=== PATIENT | male | born 1985 | race Caucasian/White ===

== ENCOUNTER 2018-12-26 16:47 | Emergency (ER) | payer BC, MEDICAID ==
[2018-12-26] MEDS ORDERED: Alum Hydrox/Mag Hydrox/Simeth 30 ML, Lidocaine 2% 15 ML PO ONE ×2 (17:37)
[2018-12-26] MEDS ORDERED: Lactulose Soln 10 GM/15 ML 30 ML UD Cup PO ONE (17:38)
--- NOTE | 2018-12-26 18:29 | EDM.PDOC ---
ED HPI GENERAL MEDICAL PROBLEM - General Chief Complaint: Abdominal Pain Stated Complaint: ABDOMINAL PAIN Time Seen by Provider: 12/26/18 16:52 Source of Information: Reports: Patient History Limitations: Reports: No Limitations - History of Present Illness INITIAL COMMENTS - FREE TEXT/NARRATIVE: 33-year-old male presents to ER with 2 day history of epigastric pain. Patient reports that he's had a negative epigastric hernia in 2013 and the pain is similar to this. Patient also reports being constipated. He denies any nausea vomiting fever or back pain or chills. He does not have a PCP. He is accompanied by his . Onset Date: 12/25/18 Duration: Getting Worse, Intermittent Location: Reports: Abdomen Quality: Reports: Ache Severity: Mild Improves with: Reports: None Worsens with: Reports: Eating Associated Symptoms: Denies: Chest Pain, Cough, Fever/Chills, Nausea/Vomiting, Shortness of Breath Upper Abdomen Pain Score (Numeric/FACES): 5 - Related Data Allergies Allergy/AdvReac Type Severity Reaction Status Date / Time No Known Allergies Allergy Verified 12/26/18 16:55 Home Meds: Home Meds Omeprazole Magnesium [Prilosec Otc] 20 mg PO DAILY 15 Days #15 tablet. [Rx] Past Medical History - Past Health History Medical/Surgical History: Denies Medical/Surgical History Gastrointestinal History: Reports: Other (See Below) Other Gastrointestinal History: epigastric hernia surgery Other Musculoskeletal History: arthritis to knee - Past Surgical History GI Surgical History: Reports: Colonoscopy, Other (See Below) Other GI Surgeries/Procedures: hemmoroids removed Social & Family History - Family History Family Medical History: Noncontributory - Tobacco Use Smoking Status *Q: Never Smoker - Caffeine Use Caffeine Use: Reports: Energy Drinks, Tea - Recreational Drug Use Recreational Drug Use: No ED ROS GENERAL - Review of Systems Review Of Systems: See Below Constitutional: Denies: Fever, Chills HEENT: Reports: No Symptoms Respiratory: Denies: Shortness of Breath Cardiovascular: Denies: Chest Pain Endocrine: Reports: No Symptoms GI/Abdominal: Reports: Constipation. Denies: Abdominal Pain, Diarrhea, Nausea, Vomiting : Reports: No Symptoms Musculoskeletal: Reports: No Symptoms Skin: Reports: No Symptoms Neurological: Reports: No Symptoms Psychiatric: Reports: No Symptoms Hematologic/Lymphatic: Reports: No Symptoms ED EXAM, GI/ABD - Physical Exam Exam: See Below Exam Limited By: No Limitations General Appearance: Alert, WD/WN, No Apparent Distress Throat/Mouth: Normal Inspection, Normal Lips, Normal Teeth, Normal Gums, Normal Oropharynx, Normal Voice, No Airway Compromise Neck: Normal Inspection, Supple, Non-Tender, Full Range of Motion Respiratory/Chest: No Respiratory Distress, Lungs Clear, Normal Breath Sounds, No Accessory Muscle Use, Chest Non-Tender Cardiovascular: Normal Peripheral Pulses, Regular Rate, Rhythm, No Edema, No Gallop, No JVD, No Murmur, No Rub GI/Abdominal Exam: Normal Bowel Sounds, Soft, No Organomegaly, No Distention, No Abnormal Bruit, No Mass, Pelvis Stable, Tender, Other (Epigastric). No: Rigid, Rebound Back Exam: Normal Inspection, Full Range of Motion Extremities: Normal Inspection, Normal Range of Motion, Non-Tender, No Pedal Edema, Normal Capillary Refill Neurological: Alert, Oriented, CN II-XII Intact, Normal Cognition Psychiatric: Normal Affect, Normal Mood Skin Exam: Warm, Dry, Intact, Normal Color, No Rash Lymphatic: No Adenopathy Course - Vital Signs Last Recorded V/S: Last Vital Signs Temp 97.6 F 12/26/18 16:52 Pulse 65 12/26/18 16:52 Resp 18 12/26/18 16:52 BP 141/67 H 12/26/18 16:52 Pulse Ox 100 12/26/18 16:52 - Orders/Labs/Meds Orders: Active Orders 24 hr Category Date Time Status KUB [Abdomen 1V Flat] [CR] Stat Exams 12/26/18 17:38 Taken Labs: Laboratory Tests 12/26/18 12/26/18 Range/Units 18:05 18:05 WBC 9.00 (4.23-9.07) K/mm3 RBC 5.21 (4.63-6.08) M/mm3 Hgb 14.7 (13.7-17.5) gm/L Hct 44.5 (40.1-51.0) % MCV 85.4 (79.0-92.2) fl MCH 28.2 (25.7-32.2) pg MCHC 33.0 (32.2-35.5) g/dl RDW Std Deviation 40.2 (35.1-43.9) fL Plt Count 344 H (163-337) K/mm3 MPV 9.4 (9.4-12.3) fl Neut % (Auto) 57.8 (34.0-67.9) % Lymph % (Auto) 28.8 (21.8-53.1) % [place] % (Auto) 8.8 (5.3-12.2) % Eos % (Auto) 4.0 (0.8-7.0) Baso % (Auto) 0.3 (0.1-1.2) % Neut # (Auto) 5.20 (1.78-5.38) K/mm3 Lymph # (Auto) 2.59 (1.32-3.57) K/mm3 [place] # (Auto) 0.79 (0.30-0.82) K/mm3 Eos # (Auto) 0.36 (0.04-0.54) K/mm3 Baso # (Auto) 0.03 (0.01-0.08) K/mm3 Sodium 139 (136-145) mEq/L Potassium 3.7 (3.5-5.1) mEq/L Chloride 103 (98-107) mEq/L Carbon Dioxide 28 (21-32) mEq/L Anion Gap 11.7 (5-15) BUN 15 (7-18) mg/dL Creatinine 1.0 (0.7-1.3) mg/dL Est Cr Clr Drug Dosing 113.17 mL/min Estimated GFR (MDRD) > 60 (>60) mL/min BUN/Creatinine Ratio 15.0 (14-18) Glucose 90 (74-106) mg/dL Calcium 9.2 (8.5-10.1) mg/dL Total Bilirubin 0.2 (0.2-1.0) mg/dL AST 23 (15-37) U/L ALT 46 (16-63) U/L Alkaline Phosphatase 87 (46-116) U/L Total Protein 7.2 (6.4-8.2) g/dl Albumin 3.8 (3.4-5.0) g/dl Globulin 3.4 gm/dL Albumin/Globulin Ratio 1.1 (1-2) Lipase 94 (73-393) U/L Meds: Medications Discontinued Medications Generic Name Dose Route Start Last Admin Trade Name Freq PRN Reason Stop Dose Admin Al Hydroxide/Mg Hydroxide 30 0 ml 12/26/18 17:37 12/26/18 17:42 ml/ Lidocaine HCl 15 ml PO 12/26/18 17:38 45 ml ONETIME ONE Administration Lactulose 20 gm 12/26/18 17:38 12/26/18 18:09 Cephulac PO 12/26/18 17:39 20 gm ONETIME ONE Administration - Re-Assessments/Exams Free Text/Narrative Re-Assessment/Exam: 12/26/18 18:54 WBC 9.0 RBC 5.21 H&H 14.2 and 44.5 sodium 139 potassium 3.9 chloride 103 CO2 28 on 15 creatinine 1.0. AST 23 ALT 46 alkaline phosphatase 87 lipase 94. KUB does not reveal had a hernia there is some moderate stool in the colon. He received GI cocktail and his condition improved. I will discharge home with Prilosec. Instructed patient to increase fiber and fluid intake for his constipation. Instructed patient to follow up with his PCP. Instructed patient to return for any new or acutely worsening symptoms. Patient verbalizes understanding and is, plan for discharge. Departure - Departure Time of Disposition: 18:55 Disposition: Home, Self-Care 01 Condition: Good Clinical Impression: Gastroenteritis, GERD with esophagitis, Constipation - Discharge Information Prescriptions: Omeprazole Magnesium [Prilosec Otc] 20 mg PO DAILY 15 Days #15 tablet. Instructions: Indigestion, [id number], Food Choices for Gastroesophageal Reflux Disease, Adult, Constipation, Adult Referrals: PCP,None [Primary Care Provider] - Forms: ED Department Discharge Additional Instructions: He had been diagnosed with GERD or acid reflux. She should follow a low-fat little spicy diet. Follow-up with your PCP. You should increase your fiber and fluid intake for your constipation. For occasional constipation may want to take magnesium psych trait which is [id number]. Return to the emergency room for any new or acutely worsening symptoms. He had been given Prilosec for your GERD - My Orders Last 24 Hours: My Active Orders 12/26/18 17:38 KUB [Abdomen 1V Flat] [CR] Stat - Assessment/Plan Last 24 Hours: My Active Orders 12/26/18 17:38 KUB [Abdomen 1V Flat] [CR] Stat
--- NOTE | 2018-12-28 09:39 | CR ---
Abdomen: Supine view of the abdomen was obtained. Comparison: Prior abdominal x-ray of 11/22/13. No soft tissue abnormality is appreciated. Bowel gas pattern is normal. Bony structures appear within normal limits for the patient's age. No abnormal calcifications are seen. Pressure: 1. Nothing acute is appreciated on supine abdominal x-ray. Diagnostic code #1
== END 2018-12-26 19:07 | disposition home or self-care (01) ==
LOC: JD.ED 16:47
DX: K52.9 Noninfective gastroenteritis and colitis, unspecified (principal); K21.0 Gastro-esophageal reflux disease with esophagitis; K59.00 Constipation, unspecified; Z79.899 Other long term (current) drug therapy
CPT/HCPCS: 36415; 74018; 80053; 83690; 85025; 99283; A9270

== ENCOUNTER 2019-01-26 21:25 | Emergency (ER) | payer BC, MEDICAID ==
--- NOTE | 2019-01-26 22:01 | EDM.PDOC ---
ED HPI GENERAL MEDICAL PROBLEM - General Chief Complaint: Chest Pain Stated Complaint: CHEST PAIN DIZZY Time Seen by Provider: 01/26/19 22:08 Source of Information: Reports: Patient History Limitations: Reports: No Limitations - History of Present Illness INITIAL COMMENTS - FREE TEXT/NARRATIVE: 33-year-old male presents for evaluation and treatment of chest pain. Patient reports he's been experiencing chest pain for the last 6 days. Gradual onset. Located in the center of his chest. States it's been constant for the last 6 days, however, when he is distracted like while at work is not notices much. Currently reports pain as a 4 out of 10. He describes the pain like someone stepping on his chest. He reports associated symptoms of dizziness, lightheadedness, weakness and nausea. He appreciates that the dizziness is worse when he wakes up. He denies any fevers, cough, vomiting, syncope or any swelling or pain in his legs. He is not taking any [id number] antacids, Tylenol or Motrin for the pain. He is currently on Prilosec daily. Has a history of stomach problems. States on Thursday, prior to the chest pain, he felt as if he had trouble swallowing. Patient reports family history significant MIs at a young age including grandmother and uncle. He did himself does not have any cardiac history. Denies any history of hypertension or hypercholesterolemia. He is not a smoker. He is not diabetic. Patient does not have a primary care provider. Mid-Sternal Chest Pain Score (Numeric/FACES): 4 - Related Data Allergies Allergy/AdvReac Type Severity Reaction Status Date / Time No Known Allergies Allergy Verified 01/26/19 21:34 Home Meds: Home Meds Omeprazole Magnesium [Prilosec Otc] 20 mg PO DAILY 15 Days #15 tablet. [Rx] Levothyroxine 25 mcg PO ACBREAKFAST #30 tab 01/26/19 [Rx] Meclizine [Antivert] 25 mg PO TID PRN #20 tab 01/26/19 [Rx] Past Medical History - Past Health History Medical/Surgical History: Denies Medical/Surgical History Gastrointestinal History: Reports: GERD Other Gastrointestinal History: epigastric hernia surgery Other Musculoskeletal History: arthritis to knee - Past Surgical History GI Surgical History: Reports: Colonoscopy, Hernia Repair/Other, Other (See Below ) Other GI Surgeries/Procedures: hemmoroids removed Social & Family History - Family History Family Medical History: Noncontributory - Tobacco Use Smoking Status *Q: Never Smoker - Caffeine Use Caffeine Use: Reports: Energy Drinks - Recreational Drug Use Recreational Drug Use: No ED ROS GENERAL - Review of Systems Review Of Systems: See Below Constitutional: Reports: Malaise, Diaphoresis Respiratory: Reports: Shortness of Breath Cardiovascular: Reports: Chest Pain, Lightheadedness. Denies: Syncope GI/Abdominal: Reports: Constipation, Nausea. Denies: Abdominal Pain, Vomiting Neurological: Reports: Dizziness. Denies: Syncope ED EXAM, GENERAL - Physical Exam Exam: See Below Exam Limited By: No Limitations General Appearance: Alert, WD/WN, No Apparent Distress Eye Exam: Bilateral Eye: Normal Inspection Throat/Mouth: Normal Inspection, Normal Lips, Normal Voice, No Airway Compromise Respiratory/Chest: No Respiratory Distress, Lungs Clear, Normal Breath Sounds Cardiovascular: Normal Peripheral Pulses, Regular Rate, Rhythm, No Murmur GI/Abdominal: Normal Bowel Sounds, Soft, Non-Tender Neurological: Alert, Oriented, Normal Cognition Psychiatric: Normal Affect, Normal Mood Skin Exam: Warm, Dry, Normal Color EKG INTERPRETATION EKG Date: 01/26/19 Time: 10:11 Rhythm: NSR Rate (Beats/Min): 56 [place]: Normal P-Wave: Present QRS: Normal ST-T: Normal QT: Normal EKG Interpretation Comments: Sinus bradycardia at 56 bpm. Non specific intraventricular conduction delay. Other blanco normal EKG. Reviewed by myself and Dr. Hendrix. Course - Vital Signs Last Recorded V/S: Last Vital Signs Temp 97.8 F 01/26/19 21:31 Pulse 60 01/26/19 21:31 Resp 17 01/26/19 21:31 BP 137/84 01/26/19 21:31 Pulse Ox 100 01/26/19 21:31 - Orders/Labs/Meds Orders: Active Orders 24 hr Category Date Time Status Cardiac Monitoring [RC] . DIRECTED Care 01/26/19 22:02 Active EKG Documentation Completion [RC] ASDIRECTED Care 01/26/19 22:02 Active EKG 12 Lead [EK] Stat Ther 01/26/19 22:02 Ordered Labs: Laboratory Tests 01/26/19 01/26/19 01/26/19 Range/Units 22:20 22:20 22:20 WBC 8.58 (4.23-9.07) K/mm3 RBC 4.93 (4.63-6.08) M/mm3 Hgb 14.0 (13.7-17.5) gm/L Hct 41.2 (40.1-51.0) % MCV 83.6 (79.0-92.2) fl MCH 28.4 (25.7-32.2) pg MCHC 34.0 (32.2-35.5) g/dl RDW Std Deviation 37.7 (35.1-43.9) fL Plt Count 332 (163-337) K/mm3 MPV 9.3 L (9.4-12.3) fl Neut % (Auto) 56.0 (34.0-67.9) % Lymph % (Auto) 29.4 (21.8-53.1) % [place] % (Auto) 9.7 (5.3-12.2) % Eos % (Auto) 4.2 (0.8-7.0) Baso % (Auto) 0.5 (0.1-1.2) % Neut # (Auto) 4.81 (1.78-5.38) K/mm3 Lymph # (Auto) 2.52 (1.32-3.57) K/mm3 [place] # (Auto) 0.83 H (0.30-0.82) K/mm3 Eos # (Auto) 0.36 (0.04-0.54) K/mm3 Baso # (Auto) 0.04 (0.01-0.08) K/mm3 Sodium 139 (136-145) mEq/L Potassium 3.4 L (3.5-5.1) mEq/L Chloride 105 (98-107) mEq/L Carbon Dioxide 25 (21-32) mEq/L Anion Gap 12.4 (5-15) BUN 20 H (7-18) mg/dL Creatinine 1.0 (0.7-1.3) mg/dL Est Cr Clr Drug Dosing 113.17 mL/min Estimated GFR (MDRD) > 60 (>60) mL/min BUN/Creatinine Ratio 20.0 H (14-18) Glucose 97 (74-106) mg/dL Calcium 9.3 (8.5-10.1) mg/dL Total Bilirubin 0.3 (0.2-1.0) mg/dL AST 22 (15-37) U/L ALT 29 (16-63) U/L Alkaline Phosphatase 82 (46-116) U/L Troponin I < 0.017 (0.00-0.056) ng/mL Total Protein 6.9 (6.4-8.2) g/dl Albumin 3.9 (3.4-5.0) g/dl Globulin 3.0 gm/dL Albumin/Globulin Ratio 1.3 (1-2) Free T4 0.97 (0.76-1.46) ng/dL TSH 3rd Generation 8.237 H (0.358-3.74) uIU/mL Meds: Medications Discontinued Medications Generic Name Dose Route Start Last Admin Trade Name Freq PRN Reason Stop Dose Admin Al Hydroxide/Mg Hydroxide 30 0 ml 01/26/19 22:02 01/26/19 22:07 ml/ Lidocaine HCl 15 ml PO 01/26/19 22:03 45 ml ONETIME ONE Administration Ketorolac Tromethamine 30 mg 01/26/19 23:33 01/26/19 23:46 Toradol IVPUSH 01/26/19 23:34 30 mg ONETIME ONE Administration Meclizine HCl 25 mg 01/26/19 23:33 01/26/19 23:46 Antivert PO 01/26/19 23:34 25 mg NOW STA Administration - Radiology Interpretation Free Text/Narrative:: Chest x-ray shows no acute intrathoracic process. Formal radiology read is pending. - Re-Assessments/Exams Free Text/Narrative Re-Assessment/Exam: 01/26/19 23:32 I reviewed the labs, EKG and imaging with the patient. We will place him on a very low dose of thyroid as his TSH is quite high. Free T4 is still actually within normal limits, On the low side of normal. I encouraged him follow-up with family practice he may need additional testing. it is rather odd as he is a male and young to have hypothyroidism. will discharge home tonight. Discharge instructions as documented. Departure - Departure Time of Disposition: 23:32 Disposition: Home, Self-Care 01 Reason for Transfer *Q: Other Condition: Fair Clinical Impression: Hypothyroidism Prescriptions: Levothyroxine 25 mcg PO ACBREAKFAST #30 tab Meclizine [Antivert] 25 mg PO TID PRN #20 tab PRN Reason: Dizziness Instructions: Hypothyroidism Referrals: PCP,None [Primary Care Provider] - Swati Perez MD [Ordering Only Provider] - Forms: ED Department Discharge Additional Instructions: Take the levothyroxine as prescribed. 1 tab daily. Take this medication in the morning. May take the meclizine 1 tablet 3 times a day as needed for dizziness. take this while your thyroid medication is being adjusted to be optimized for you. make sure you are drinking plenty of fluids. Follow-up in the clinic. You may need further studies of your thyroid to identify the exact cause of your hypothyroidism. You will likely need your thyroid medication adjusted over time. Please return to the ER if your symptoms change or worsen. - My Orders Last 24 Hours: My Active Orders 01/26/19 22:02 Cardiac Monitoring [RC] . DIRECTED EKG Documentation Completion [RC] ASDIRECTED EKG 12 Lead [EK] Stat - Assessment/Plan Last 24 Hours: My Active Orders 01/26/19 22:02 Cardiac Monitoring [RC] . DIRECTED EKG Documentation Completion [RC] ASDIRECTED EKG 12 Lead [EK] Stat
[2019-01-26] MEDS ORDERED: Alum Hydrox/Mag Hydrox/Simeth 30 ML, Lidocaine 2% 15 ML PO ONE ×2 (22:02)
[2019-01-26] MEDS ORDERED: Ketorolac 30 MG/ML SDV IVPUSH ONE (23:33)
--- NOTE | 2019-01-27 07:59 | CR ---
Chest: Two views of the chest were obtained. Comparison: No prior chest imaging. Heart size and mediastinum are normal. Lungs are clear. Bony structures are unremarkable. Impression: 1. Nothing acute is appreciated on two-view chest x-ray. Diagnostic code #1
== END 2019-01-26 23:51 | disposition home or self-care (01) ==
LOC: JD.ED 21:25
DX: E03.9 Hypothyroidism, unspecified (principal); K21.9 Gastro-esophageal reflux disease without esophagitis; Z79.899 Other long term (current) drug therapy
CPT/HCPCS: 36415; 71046; 80053; 84439; 84443; 84484; 85025; 93005; 96372; 99285; A9270; J1885; 93010; 99284

== ENCOUNTER 2019-12-25 00:37 | Emergency (ER) | payer OTHER, BC ==
--- NOTE | 2019-12-25 01:27 | EDM.PDOC ---
ED HPI GENERAL MEDICAL PROBLEM - General Chief Complaint: Chest Pain Stated Complaint: BROKEN RIBS/SOB/RIB PAIN Time Seen by Provider: 12/25/19 00:49 Source of Information: Reports: Patient, Old Records ([facility] 12/21/2019) History Limitations: Reports: No Limitations - History of Present Illness INITIAL COMMENTS - FREE TEXT/NARRATIVE: Mr. Griffith is a very pleasant 34-year-old man with no significant chronic medical problems, who, medical records indicate, was seen at the [facility] on 12/21/2019, after he fell about 6 to 7 feet off of a ladder at work , onto his right side. He did not hit his head, and there was no loss of consciousness. A CT of the chest found 5 right rib fractures, numbers 8 through 12, with no hemothorax or pneumothorax. No abdominal injury was found, and a CT scan of his head was negative. He was admitted to the Trauma Surgeon overnight, and discharged home the following day, 12/22/2019. The patient has since followed up with Occupational Health, this past Thursday, , and he has an appointment to follow-up again this coming Thursday, 2019. His pain is being treated with ibuprofen 800 mg every 6 hours, Dilaudid 2 mg every 4 hours, and Flexeril 3 times a day. He states that he has been using an incentive spirometer. He now presents stating that he started having trouble breathing around 23:30, despite his pain medications. He is not sure if his difficulty breathing is due to pain, or some other problem. Here in the ED, the patient's initial BP is found to be modestly elevated at 141 /84, otherwise, he is hemodynamically stable, afebrile, saturating 92% on room air. Other than the right rib pain, the patient denies recent fever, chills, sore throat, ear pain, nasal or sinus congestion, cough, dyspnea, palpitations, nausea, vomiting, constipation, diarrhea, abdominal pain, urinary symptoms, recent weight gain or weight loss, recent bloody bowel movements or black bowel movements, recent joint aches, headaches, or rashes. The patient's PCP is Swati Perez NP. His Occupational Health physician is Dr. Wally Márquez. 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: Reports: Cold Therapy, Other (see below) Other 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: prescribed flexiril, dilaudid, motrin Right Posterior Back Pain Score (Numeric/FACES): 8 - Related Data Allergies Allergy/AdvReac Type Severity Reaction Status Date / Time No Known Allergies Allergy Verified 12/25/19 00:59 Home Meds: Home Meds Amoxicillin 2 tab PO Q8H #42 tablet 12/25/19 [Rx] Azithromycin 1 tab PO QAM #4 tablet 12/25/19 [Rx] Past Medical History Gastrointestinal History: Reports: GERD Musculoskeletal History: Reports: Fracture (right ribs 8 to 12, 12/21/2019), Osteoarthritis (both knees) - Past Surgical History GI Surgical History: Reports: Colonoscopy (x 1), EGD (x 1), Hernia, Abdominal ( epigastrium), Other (See Below) (Hemorrhoidectomy) Social & Family History - Family History Family Medical History: Noncontributory - Tobacco Use Smoking Status *Q: Never Smoker Tobacco Use Within Last Twelve Months: Smokeless Tobacco (Chews 1/2 can per day) - Caffeine Use Caffeine Use: Reports: Soda - Alcohol Use Alcohol Use History: No - Recreational Drug Use Recreational Drug Use: No - Living Situation & Occupation Living situation: Reports: , with Spouse, with Family (6 kids) 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 ED EXAM, GENERAL - Physical Exam Exam: See Below Exam Limited By: No Limitations General Appearance: Alert, WD/WN, Mild Distress (appears uncomfortable) Eye Exam: Bilateral Eye: EOMI, Normal Inspection Ears: Normal External Exam, Hearing Grossly Normal Nose: Normal Inspection Throat/Mouth: Normal Inspection, Normal Lips, Normal Voice, No Airway Compromise Head: Atraumatic, Normocephalic Neck: Normal Inspection, Full Range of Motion Respiratory/Chest: No Respiratory Distress, Lungs Clear, Normal Breath Sounds ( Poor inspiratory effort, therefore diminished breath sounds), No Accessory Muscle Use, Other (No flail chest). No: Crackles, Rhonchi, Wheezing, Stridor, Pleural Rub, Prolonged Expiration Cardiovascular: Normal Peripheral Pulses, Regular Rate, Rhythm, No Edema, No Gallop, No JVD, No Murmur, No Rub Peripheral Pulses: 4+: Radial (L), Radial (R) GI/Abdominal: Normal Bowel Sounds, Soft, Non-Tender, No Organomegaly, No Distention, No Abnormal Bruit, No Mass (Male) Exam: Deferred Rectal (Males) Exam: Deferred Back Exam: Normal Inspection, Full Range of Motion, NT Extremities: Normal Inspection, Normal Range of Motion, No Pedal Edema, Normal Capillary Refill Neurological: Alert, Oriented, Normal Cognition, No Motor/Sensory Deficits Psychiatric: Normal Affect Skin Exam: Warm, Dry, Intact, Normal Color, No Rash Course - Vital Signs Last Recorded V/S: Last Vital Signs Temp 36.2 C 12/25/19 02:21 Pulse 68 12/25/19 02:21 Resp 18 12/25/19 02:21 BP 131/83 12/25/19 02:21 Pulse Ox 90 L 12/25/19 02:21 - Orders/Labs/Meds Orders: Active Orders 24 hr Category Date Time Status Chest 2V [CR] Stat Exams 12/25/19 01:19 Taken Chest wo Cont [CT] Stat Exams 12/25/19 02:51 Taken Labs: Laboratory Tests 12/25/19 12/25/19 12/25/19 Range/Units 03:20 03:20 03:20 WBC 17.36 H (4.23-9.07) K/mm3 RBC 5.09 (4.63-6.08) M/mm3 Hgb 14.6 (13.7-17.5) gm/dl Hct 44.2 (40.1-51.0) % MCV 86.8 D (79.0-92.2) fl MCH 28.7 (25.7-32.2) pg MCHC 33.0 (32.2-35.5) g/dl RDW Std Deviation 40.9 (35.1-43.9) fL Plt Count 388 H (163-337) K/mm3 MPV 9.2 L (9.4-12.3) fl Neutrophils % (Manual) 72 H (40-60) % Band Neutrophils % 8 (0-10) % Lymphocytes % (Manual) 9 L (20-40) % Atypical Lymphs % 0 % Monocytes % (Manual) 8 (2-10) % Eosinophils % (Manual) 3 (0.8-7.0) % Basophils % (Manual) 0 L (0.2-1.2) Platelet Estimate Adequate Plt Morphology Comment Normal RBC Morph Comment Normal PT 10.1 (9.7-12.0) SECONDS INR 0.93 APTT 29 (22-31) SECONDS Sodium 138 (136-145) mEq/L Potassium 4.3 (3.5-5.1) mEq/L Chloride 103 (98-107) mEq/L Carbon Dioxide 27 (21-32) mEq/L Anion Gap 12.3 (5-15) BUN 14 (7-18) mg/dL Creatinine 1.0 (0.7-1.3) mg/dL Est Cr Clr Drug Dosing 112.09 mL/min Estimated GFR (MDRD) > 60 (>60) mL/min BUN/Creatinine Ratio 14.0 (14-18) Glucose 112 H (74-106) mg/dL Calcium 9.1 (8.5-10.1) mg/dL Total Bilirubin 0.4 (0.2-1.0) mg/dL AST 19 (15-37) U/L ALT 51 (16-63) U/L Alkaline Phosphatase 84 (46-116) U/L Total Protein 7.5 (6.4-8.2) g/dl Albumin 3.7 (3.4-5.0) g/dl Globulin 3.8 gm/dL Albumin/Globulin Ratio 1.0 (1-2) Meds: Medications Discontinued Medications Generic Name Dose Route Start Last Admin Trade Name Freq PRN Reason Stop Dose Admin Amoxicillin 1,000 mg 12/25/19 04:12 12/25/19 04:22 Amoxil PO 12/25/19 04:13 1,000 mg ONETIME STA Administration Azithromycin 500 mg 12/25/19 04:12 12/25/19 04:22 Zithromax PO 12/25/19 04:13 500 mg ONETIME STA Administration - Re-Assessments/Exams Free Text/Narrative Re-Assessment/Exam: 12/25/19 01:21 As above, the patient fractured 5 right ribs when he fell from a ladder on 2019. He now presents with increased pain and dyspnea since 23:30 tonight, despite pain medication. I have ordered a 2 view chest x-ray to evaluate for a pneumothorax, hemothorax, or pulmonary contusion. 12/25/19 02:52 Two-view chest radiograph reviewed. The cardiac silhouette is within normal limits. No pulmonary vascular congestion. There appears to be a right-sided pleural effusion/hemothorax, with atelectasis at the interface. A right lower lobe infiltrate cannot be excluded. No pneumothorax. Formal read per the Radiologist pending. Based on the above, I have ordered a CT of the chest without contrast to evaluate further. 12/25/19 03:59 CT of the chest without contrast as read by [facility] as: 1. Bilateral lower lobe consolidations right greater than left, either pneumonia or atelectases. 2. Small right pleural effusion/hemothorax. 3. Right 7th through 12th rib fractures. The right lateral 9 and right posterior 11th rib fractures are complex with displacement. 4. There is edema and thickening of the right lateral chest wall soft tissues partially included on this study. 12/25/19 04:06 The patient's CBC is remarkable for a WBC count elevated at 17.39, with 8% bandemia. His platelets are slightly elevated at 388,000, with the remainder of his CBC being unremarkable. His CMP is remarkable for a blood glucose is slightly elevated at 112, with the remainder of his CMP being unremarkable. His coags are within normal limits. Based on the above CT findings and elevated WBC count with left shift, the patient appears to have pneumonia. Because he is not hypoxemic, I do not see an indication for admission to the hospital. I will therefore start him on amoxicillin 1 g Q 8 hrs and a Z-Ino. 12/25/19 04:18 Test results and my plan of treatment discussed with the patient. He is agreeable. I emphasized that it is important that he follow-up with Dr. Márquez this coming Thursday, as scheduled. Departure - Departure Time of Disposition: 04:19 Disposition: Home, Self-Care 01 Condition: Good Clinical Impression: Right lower lobe pneumonia, Multiple rib fractures involving four or more ribs - Discharge Information *PRESCRIPTION DRUG MONITORING PROGRAM REVIEWED*: Not Applicable *COPY OF PRESCRIPTION DRUG MONITORING REPORT IN PATIENT VONDA: Not Applicable Prescriptions: Amoxicillin 2 tab PO Q8H #42 tablet Azithromycin 1 tab PO QAM #4 tablet Referrals: Swati Perez MD [Primary Care Provider] - Wally Márquez MD [Physician] - Forms: ED Department Discharge Additional Instructions: You were seen in the emergency room for trouble breathing following multiple rib fractures on 12/21/2019. Work-up in the ER included a chest x-ray, followed by a CT scan of your chest without contrast, along with blood work. The CT scan of your chest found a consolidation of the of your right lung, and your WBC count was found to be elevated at 17.39 with a percent bandemia, consistent with a bacterial infection. The CT scan also found that you have 6 broken ribs (ribs #7 through 12), not 5. Based on your CT and lab findings, you have been diagnosed with right lower lobe pneumonia. You have been started on the antibiotics amoxicillin and azithromycin. Prescriptions for amoxicillin and azithromycin have been sent to the [facility], located just south and across the [address] from [facility]. The pharmacy will be open between noon and 4:00 today. Take 2 tablets of amoxicillin every 8 hours, starting around noon today, as prescribed. Finish the entire 7-day prescription unless told otherwise by Dr. Márquez. Take 1 tablet of azithromycin every morning, starting tomorrow morning, 12/26/2019, as prescribed. Finish the entire 4-day prescription unless told otherwise by Dr. Márquez. Continue to take the ibuprofen, Dilaudid, and Flexeril as directed by Dr. Márquez. Follow-up with Dr. Márquez at your previously scheduled appointment this coming 12/27/2019. If any other problems, please do not hesitate to return to the ER. Sepsis Event Note - Evaluation Sepsis Screening Result: No Definite Risk - Focused Exam Vital Signs: Vital Signs Temp Pulse Resp BP Pulse Ox 12/25/19 02:21 36.2 C 68 18 131/83 90 L 12/25/19 00:50 36.3 C 88 20 141/84 H 92 L Date Exam was Performed: 12/25/19 Time Exam was Performed: 04:28 - My Orders Last 24 Hours: My Active Orders 12/25/19 01:19 Chest 2V [CR] Stat 12/25/19 02:51 Chest wo Cont [CT] Stat - Assessment/Plan Last 24 Hours: My Active Orders 12/25/19 01:19 Chest 2V [CR] Stat 12/25/19 02:51 Chest wo Cont [CT] Stat
[2019-12-25] MEDS ORDERED: Amoxicillin 500 MG Cap PO STA (04:12)
[2019-12-25] MEDS ORDERED: Azithromycin 250 MG Tab PO STA (04:12)
--- NOTE | 2019-12-25 10:27 | CT ---
CT chest Technique: Multiple axial sections were obtained from above the dome of the diaphragm inferiorly through the pubic symphysis. Intravenous contrast not utilized. Findings: Small right-sided pleural effusion is seen. Areas of atelectasis noted within both lung bases. Atelectasis is worse on the right side. Mediastinum and hilar regions are unremarkable. Visualized upper abdominal structures shows nothing acute. Fractures are noted within the posterior right 12th rib near the costovertebral junction, 11th rib fracture which is mildly comminuted and is mildly displaced, nondisplaced rib fracture noted within the posterior lateral 10th rib, displaced rib fracture noted within the posterolateral 9th rib, nondisplaced fracture within the lateral 8th rib and nondisplaced fracture within the lateral 7th rib. No left-sided rib fractures are noted. Impression: 1. Bibasilar atelectasis and small right-sided pleural effusion. Atelectasis more prominent on the right side. 2. Multiple right-sided rib fractures involving the 7th through 12th ribs. Several other rib fractures show displacement. 3. No evidence of pneumothorax. Diagnostic code #3 This report was dictated in MDT I agree with preliminary report from [facility], finalized on 12/25/19, 4:32 AM Central Daylight Time
--- NOTE | 2019-12-25 10:27 | CR ---
Chest: 2 views of the chest were obtained. Comparison: Previous chest x-ray of 01/26/19. Blunting of the right lung costophrenic angle compatible with small pleural effusion. Slight areas of increased density are seen within both lung bases most likely due to atelectasis. Upper lungs are clear. Heart size at the upper limits of normal. Upper mediastinum is normal right lower rib fractures are seen.. Impression: 1. Small right-sided pleural effusion. 2. Mild bibasilar atelectasis. 3. Right lower rib fractures. Diagnostic code #3 This report was dictated in MDT
== END 2019-12-25 04:34 | disposition home or self-care (01) ==
LOC: JD.ED 00:37
DX: S22.41XA Multiple fractures of ribs, right side, initial encounter for closed fracture (principal); J18.9 Pneumonia, unspecified organism; F17.220 Nicotine dependence, chewing tobacco, uncomplicated; W11.XXXA Fall on and from ladder, initial encounter; Y99.0 Civilian activity done for income or pay
CPT/HCPCS: 36415; 71046; 71250; 80053; 85007; 85027; 85610; 85730; 99283; A9270; 99284